=== PATIENT | female | born 2000 | race African-American/Black ===

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

== ENCOUNTER 2019-01-07 07:20 | Inpatient (IN) | payer OTHER ==
[2019-01-07] MEDS: DEXTROSE 5%-LACTATED RINGERS 1,000 ML IV SCH ×2 (08:30→15:28)
[2019-01-07] MEDS ORDERED: BUTORPHANOL TARTRATE 1 MG/ML VIAL IVPB ONE (08:44)
[2019-01-07] MEDS ORDERED: PROMETHAZINE HCL 25 MG/1 ML VIAL IVPUSH ONE (08:44)
--- NOTE | 2019-01-07 08:44 | HP ---
Past Medical History - Primary Care Physician PCP:: Linda Baum - Admission Chief Complaint: Spontaneous rupture of membanes History Source: Patient Limitations to Obtaining History: No Limitations - Past Medical History ...: 2 ...Para: 0 ...Induced : 1 ...EDC by Romy: 01/07/19 - Past Surgical History Past Surgical History: Yes: None Hx Myomectomy: No Hx Transabdominal Cerclage: No - Smoking History Smoking history: Never smoked Have you smoked in the past 12 months: No - Alcohol/Substance Use Hx Alcohol Use: No - Social History History of Recent Travel: No Home Medications - Allergies Allergies/Adverse Reactions: Allergies Allergy/AdvReac Type Severity Reaction Status Date / Time No Known Drug Allergies Allergy Verified 01/07/19 08:54 peach Allergy Verified 01/07/19 08:54 peanut Allergy Verified 01/07/19 08:54 - Home Medications Home Medications: Ambulatory Orders Pnv No.95/Ferrous Fum/Folic AC [ Vitamin Tablet] 1 each PO DAILY 30 Days #30 tablet 05/28/18 Ferrous Sulfate [Feosol] 325 mg PO DAILY 01/03/19 Review of Systems - Review of Systems Constitutional: reports: No Symptoms Eyes: reports: No Symptoms HENT: reports: No Symptoms Neck: reports: No Symptoms Cardiovascular: reports: No Symptoms Respiratory: reports: No Symptoms Gastrointestinal: reports: Abdominal Pain Genitourinary: reports: No Symptoms Breasts: reports: No Symptoms Reported Musculoskeletal: reports: No Symptoms Integumentary: reports: No Symptoms Neurological: reports: No Symptoms Endocrine: reports: No Symptoms Hematology/Lymphatic: reports: No Symptoms Psychiatric: reports: No Symptoms Physical Exam - Maternity Vital Signs: Vital Signs Temperature 97.9 F 01/07/19 07:40 Pulse Rate 80 01/07/19 07:40 Respiratory Rate 20 01/07/19 07:40 Blood Pressure 123/68 01/07/19 07:40 O2 Sat by Pulse Oximetry (%) Constitutional: Yes: Well Nourished, No Distress Neck: Yes: WNL Cardiovascular: Yes: WNL Lungs: Clear to auscultation - Abdominal Exam/OB Fundal Height: 40 Number of Fetuses: Single Presentation: Vertex Contractions: Yes Regularity: Regular Heart Rate (range): 130 Category: I Decelerations: None - Vaginal Exam/OB Dilatation (cm): 2 Effacement (%): 90 Amniotic Membrane Status: Ruptured - Physical Exam Musculoskeletal: Yes: WNL Extremities: Yes: WNL Edema: No Integumentary: Yes: WNL ...Motor Strength: WNL Psychiatric: Yes: WNL, Alert, Oriented Hemorrhage Risk Assessment - Risk Factors Risk Score: 1 Risk Level: Medium Risk Problem List - Problems (1) Spontaneous rupture of amniotic membranes Code(s): [id number] - Assessment/Plan IUP @ 40 weeks SROM Plan stadol
[2019-01-07 09:15] VITALS: BMI 29.4
[2019-01-07 09:25] LABS: BASO % 0.2 % (0-2.0); EOS % 4.7 % (0-4.5); HEMATOCRIT 33.6 % (32.4-45.2); HEMOGLOBIN 11.1 GM/dL (10.7-15.3); LYMPH % 10.1 % (8-40); MCH 24.8 pg (25.7-33.7); MCHC 32.9 g/dl (32.0-36.0); MEAN CELL VOLUME 75.5 fl (80-96); MEAN PLT VOLUME 9.3 fl (7.5-11.1); MONO % 7.5 % (3.8-10.2); NEUT % 77.5 % (42.8-82.8); PLATELET COUNT 179 K/MM3 (134-434); RBC 4.46 M/mm3 (3.60-5.2); RDW 17.3 % (11.6-15.6); WHITE BLOOD COUNT 14.5 K/mm3 (4.0-10.0)
[2019-01-07 09:40] LABS: INR 0.99 (0.83-1.09); PROTHROMBIN TIME (PATIENT) 11.7 SEC (9.7-13.0)
[2019-01-07 09:42] LABS: ACTIVATED PTT 30.9 SECONDS (25.2-36.5)
[2019-01-07] MEDS ORDERED: BUTORPHANOL TARTRATE 1 MG/ML VIAL ONE ×2 (09:53)
[2019-01-07] MEDS ORDERED: PROMETHAZINE HCL 25 MG/1 ML VIAL ONE (09:53)
[2019-01-07 09:59] LABS: ANION GAP 8 MMOL/L (8-16); BLOOD UREA NITROGEN 5 mg/dL (7-18); CALCIUM 8.3 mg/dL (8.5-10.1); CHLORIDE 108 mmol/L (98-107); CO2 24 mmol/L (21-32); CREATININE 0.7 mg/dL (0.55-1.3); GLUCOSE,RANDOM 90 mg/dL (74-106); POTASSIUM 3.3 mmol/L (3.5-5.1); SODIUM 139 mmol/L (136-145)
--- NOTE | 2019-01-07 19:48 | PN ---
Ante-Partal Exam - Subjective Subjective: Pt with co of pain & crying variable decel fro 140 to 120's moderate varibility in between Vital Signs: Vital Signs Temperature 99.0 F 01/07/19 19:00 Pulse Rate 77 01/07/19 19:00 Respiratory Rate 20 01/07/19 19:00 Blood Pressure 113/68 01/07/19 19:00 O2 Sat by Pulse Oximetry (%) Bleeding: No Headache: No Visual changes: No Right upper quadrant pain: No - Contractions Contractions: Yes Regularity: Irregular Intensity: Moderate Monitor Mode: External - Exam during Labor Heart Rate: 140 Variability: Moderate Heart Rate Location: [facility] Category: II Monitor Accelerations: Present Monitor Decelerations: Variable Exam: Vaginal Dilatation (cm): 4 Amniotic Membrane Status: Ruptured Presentation: Vertex - Intrapartum Hemorrhage Risk Risk Score: 0 Risk Level: Low Risk - Assessment/Plan Assessment/Plan: IUP @ 40 wk Cat 2 -varibilile decel contraction refusing epidural plan Will discuss options
[2019-01-07] MEDS ORDERED: FENTANYL/BUPIVACAINE/NS/PF - PCEA - 50 ML DISP.SYRIN EP ONE (19:55)
--- NOTE | 2019-01-07 20:03 | PN ---
Progress Note, Labor Vaginal Exam #1 Labor Exam Date: 01/07/19 Labor Exam Time: 19:45 Dilatation: 4 Effacement (%): 80% Amniotic Membrane Status: Ruptured Presentation: Vertex/Position (In pain. BA. Suspeting OP. Occ. decel, early. Good reactivity. Cat. 2. Epidural explained. Pt. understands and requests it.) Station: -2 Remarks: Plan: Epidural now. Observe. Allow labor to continue.
[2019-01-07] MEDS ORDERED: OXYTOCIN 30 UNITS in 0.9% NS 30 UNIT/500 ML INFUS.BAG IVPB ONE (20:56)
[2019-01-07] MEDS ORDERED: NALOXONE HCL 0.4 MG/ML VIAL IVPUSH PRN (21:35)
[2019-01-07] MEDS ORDERED: ELECTROLYTE-148 SOLN 1,000 ML IV SCH (21:45)
[2019-01-07] MEDS ORDERED: FENTANYL/BUPIVACAINE/NS/PF - PCEA - 50 ML DISP.SYRIN EP SCH (21:45)
[2019-01-07] MEDS ORDERED: OXYTOCIN 30 UNITS in 0.9% NS 30 UNIT/500 ML INFUS.BAG IVPB SCH (21:45)
[2019-01-07] MEDS ORDERED: TUBERCULIN PPD 5 TU/0.1ML SYRINGE (IN PATIENT USE ONLY) ID ONE (22:00)
--- NOTE | 2019-01-08 00:25 | PN ---
Progress Note, Labor Vaginal Exam #2 Labor Exam Date: 01/08/19 Heart Rate (range): 0020 Dilatation: 9 Effacement (%): 100 Amniotic Membrane Status: Ruptured Presentation: Vertex/Position Station: -1 Remarks: ROT, head comming down. FH ok, cat.2. Good variability. I/P: Good progress. Pushing discussed. Will allow to labor for another half hour, continue epidural. All explained.
[2019-01-08] MEDS ORDERED: OXYTOCIN 20 UNITS in 0.9% NS 20 UNIT/1,000 ML INFUS.BAG IV ONE (00:31)
[2019-01-08] MEDS ORDERED: FENTANYL/BUPIVACAINE/NS/PF - PCEA - 50 ML DISP.SYRIN EP ONE (00:31)
[2019-01-08] MEDS ORDERED: OXYTOCIN 20 UNITS in 0.9% NS 20 UNIT/1,000 ML INFUS.BAG IV SCH (01:20)
[2019-01-08] MEDS ORDERED: OXYTOCIN 10 UNITS/ML VIAL IM ONE (01:20)
[2019-01-08] MEDS ORDERED: OXYTOCIN 10 UNITS/ML VIAL ONE (01:22)
--- NOTE | 2019-01-08 01:45 | PN ---
Progress Note, Labor Vaginal Exam #3 Labor Exam Date: 01/08/19 Labor Exam Time: 00:45 Station: +1 (Fully dilated. OA. Pushing.)
--- NOTE | 2019-01-08 01:48 | PN ---
Delivery - Delivery Vaginal Delivery: Spontaneous Type of Anesthesia: Local, Epidural Episiotomy/Laceration: Midline EBL (cc): 600 (Episiotomy repaired in layers. Chr 2-0.) Delivery, Single - Feeding Plan Initial Plan: Elected not to breastfeed exclusively throughout hospitalization
[2019-01-08] MEDS ORDERED: WITCH HAZEL 50% (TUCKS) 40 PAD/JAR PAD TP PRN (03:29)
[2019-01-08] MEDS ORDERED: BENZOCAINE 20% 57 GM BOTTLE TP PRN (03:29)
[2019-01-08] MEDS ORDERED: BENZOCAINE 28 GM HEMORRHOIDAL OINTMENT TP PRN (03:29)
[2019-01-08] MEDS ORDERED: METHYLERGONOVINE MALEATE 0.2 MG/1 ML AMP IM PRN (03:29)
[2019-01-08] MEDS ORDERED: IBUPROFEN 600 MG TABLET (FP) PO PRN (03:29)
[2019-01-08] MEDS ORDERED: BISACODYL 10 MG SUPP.RECT RC PRN (03:29)
[2019-01-08] MEDS: ACETAMINOPHEN 325 MG TABLET (FP) PO PRN ×2 (16:15→23:14)
[2019-01-08 17:12] LABS: HBsAG SCREEN Negative (Negative); RUBELLA IgG ANTIBODY 3.43 index (Immune >0.99)
[2019-01-09] MEDS ORDERED: SENNOSIDES/DOCUSATE COMBO (SENNA PLUS) TABLET (UD) PO PRN (03:29)
[2019-01-09 07:39] LABS: BASO % 0.3 % (0-2.0); EOS % 4.6 % (0-4.5); HEMATOCRIT 27.4 % (32.4-45.2); HEMOGLOBIN 8.9 GM/dL (10.7-15.3); LYMPH % 13.7 % (8-40); MCH 24.3 pg (25.7-33.7); MCHC 32.6 g/dl (32.0-36.0); MEAN CELL VOLUME 74.6 fl (80-96); MEAN PLT VOLUME 9.6 fl (7.5-11.1); MONO % 6.3 % (3.8-10.2); NEUT % 75.1 % (42.8-82.8); PLATELET COUNT 189 K/MM3 (134-434); RBC 3.68 M/mm3 (3.60-5.2); WHITE BLOOD COUNT 14.4 K/mm3 (4.0-10.0)
--- NOTE | 2019-01-09 10:25 | PN ---
Post Progress Note - Subjective Subjective: 18 yo Para 1 status post vaginal delivery, seen and evaluated. Doing well. Post Day: 1 Type of Delivery: Vital Signs: Vital Signs Temperature 98.4 F 01/08/19 22:35 Pulse Rate 97 H 01/08/19 22:35 Respiratory Rate 20 01/08/19 22:35 Blood Pressure 114/62 01/08/19 22:35 O2 Sat by Pulse Oximetry (%) 100 01/08/19 02:50 Breast Exam: Yes: Soft Uterus: Yes: Fundus Firm Abdomen/GI: Yes: Abdomen soft, Tolerating PO Lochia: Yes: Rubra Lochia, amount: Moderate Activity: Ambulating - Labs Labs: CBC WBC 14.4 K/mm3 (4.0-10.0) H 01/09/19 06:55 RBC 3.68 M/mm3 (3.60-5.2) 01/09/19 06:55 Hgb 8.9 GM/dL (10.7-15.3) L 01/09/19 06:55 Hct 27.4 % (32.4-45.2) L D 01/09/19 06:55 MCV 74.6 fl (80-96) L 01/09/19 06:55 MCH 24.3 pg (25.7-33.7) L 01/09/19 06:55 MCHC 32.6 g/dl (32.0-36.0) 01/09/19 06:55 RDW 17.0 % (11.6-15.6) H 01/09/19 06:55 Plt Count 189 K/MM3 (134-434) 01/09/19 06:55 MPV 9.6 fl (7.5-11.1) 01/09/19 06:55 Absolute Neuts (auto) 10.8 K/mm3 (1.5-8.0) H 01/09/19 06:55 Neutrophils % 75.1 % (42.8-82.8) 01/09/19 06:55 Lymphocytes % 13.7 % (8-40) D 01/09/19 06:55 Monocytes % 6.3 % (3.8-10.2) 01/09/19 06:55 Eosinophils % 4.6 % (0-4.5) H 01/09/19 06:55 Basophils % 0.3 % (0-2.0) 01/09/19 06:55 Nucleated RBC % 0 % (0-0) 01/09/19 06:55 Problem List - Problems (1) Status post normal vaginal delivery Code(s): [id number] - Assessment/Plan Status post vaginal delivery Stable Continue routine care
--- NOTE | 2019-01-10 01:28 | DS ---
Physical Exam-COVER OPERATOR Vital Signs: Vital Signs Temperature 98.4 F 01/09/19 22:00 Pulse Rate 88 01/09/19 22:00 Respiratory Rate 20 01/09/19 22:00 Blood Pressure 114/61 01/09/19 22:00 O2 Sat by Pulse Oximetry (%) 100 01/08/19 02:50 Constitutional: Yes: Well Nourished, No Distress Cardiovascular: Yes: WNL Respiratory: Yes: WNL Gastrointestinal: Yes: WNL, Normal Bowel Sounds, Soft ....Post : Yes: Uterus firm, Uterus non-tender Breast(s): Yes: WNL Musculoskeletal: Yes: WNL Extremities: Yes: WNL Edema: No Neurological: Yes: WNL, Alert, Oriented Labs: CBC, BMP 01/09/19 06:55 01/07/19 09:10 Delivery - Delivery Vaginal Delivery: Spontaneous Type of Anesthesia: Epidural Episiotomy/Laceration: Midline EBL (cc): 600 Delivery, Single - Stages of Labor Date 1st Stage Initiatied: 01/07/19 Time 1st Stage Initiated: 04:00 Date 2nd Stage Initiated: 01/08/19 Time 2nd Stage Initiated: 00:45 Date of Delivery: 01/08/19 Time of Delivery: 01:20 Time Placenta Delivered: 01:25 - Condition of Label Rewinder/Coding Specialist Home Health Present: No Infant Gender: Male Weight: 7 lb 12 oz Position: OA Total Hours ROM (Hrs/Mins): 21Hrs/55Mins - 1 Minute Total Score: 9 5 Minutes Total Score: 9 - Feeding Plan Initial Plan: Elected not to breastfeed exclusively throughout hospitalization Discharge Summary Reason For Visit: LABOR Current Active Problems Spontaneous rupture of amniotic membranes (Acute) Status post normal vaginal delivery (Acute) Procedures: Principal: Normal vaginal delivery Hospital Course: unremarkable Condition: Good - Instructions Disposition: HOME - Home Medications Comprehensive Discharge Medication List: Ambulatory Orders Pnv No.95/Ferrous Fum/Folic AC [ Vitamin Tablet] 1 each PO DAILY 30 Days #30 tablet 05/28/18 Ferrous Sulfate [Feosol] 325 mg PO DAILY 01/03/19 Ibuprofen [Motrin -] 600 mg PO TID #21 tablet 01/08/19
[2019-01-10 08:38] VITALS: BP 122/50; PULSE 69; TEMP 97.8
== END 2019-01-10 13:20 | disposition home or self-care (01) | DRG 560 ==
LOC: JDEL 07:20 → JLDR 08:30 → J3W 01-08 04:10
PROVIDERS: ADMIT Obstetrics & Gynecology; ATTEND Obstetrics & Gynecology
PROC: 0W8NXZZ Division of Female Perineum, External Approach (ICD-10-PCS; principal; 2019-01-08)
PROC: 10E0XZZ Delivery of Products of Conception, External Approach (ICD-10-PCS; 2019-01-08)
DX: O48.0 Post-term pregnancy (principal); Z3A.40 40 weeks gestation of pregnancy; Z37.0 Single live birth
CPT/HCPCS: 36415; 59025; 59409; 80048; 85025; 85610; 85730; 86593; 86762; 86850; 86900; 86901; 87340

== ENCOUNTER 2021-06-12 09:38 | Emergency (ER) | payer OTHER ==
[2021-06-12 10:03] VITALS: BMI 21.4
[2021-06-12] MEDS ORDERED: ACETAMINOPHEN 325 MG TABLET (FP) PO ONE (10:11)
[2021-06-12] MEDS ORDERED: SODIUM CHLORIDE 1,000 ML IV STA (10:12)
[2021-06-12 10:34] LABS: BASO % 0.1 % (0-2.0); EOS % 0.2 % (0-4.5); HEMATOCRIT 37.1 % (32.4-45.2); HEMOGLOBIN 12.4 GM/dL (10.7-15.3); LYMPH % 4.2 % (8-40); MCH 26.7 pg (25.7-33.7); MCHC 33.4 g/dl (32.0-36.0); MEAN PLT VOLUME 9.1 fl (7.5-11.1); MONO % 6.4 % (3.8-10.2); NEUT % 89.1 % (42.8-82.8); PLATELET COUNT 242 10^3/uL (134-434); RBC 4.65 M/mm3 (3.60-5.2); RDW 13.8 % (11.6-15.6); WHITE BLOOD COUNT 18.4 K/mm3 (4.0-10.0)
[2021-06-12 10:38] LABS: EPI CELLS >36 /uL (0-25.1); HYALINE CASTS 6 /uL (0-3.1); PH,URINE 5.5 (5.0-8.0); URINE APPEARANCE TURBID; URINE BACTERIA 5012 /uL (0-1359); URINE BILIRUBIN NEGATIVE (NEGATIVE); URINE COLOR YELLOW; URINE GLUCOSE (UA) NEGATIVE (NEGATIVE); URINE KETONE 4+ (NEGATIVE); URINE LEUK ESTERASE 3+ (NEGATIVE); URINE NITRITE POSITIVE (NEGATIVE); URINE PROTEIN 2+ (NEGATIVE); URINE RBC 86 /uL (0-23.9); URINE WBC 5991 /uL (0-25.8)
[2021-06-12] MEDS ORDERED: CEFTRIAXONE 2 GM-D5W BAG 2 GM/50 ML BAG IVPB ONE (10:55)
[2021-06-12 10:56] LABS: CALCIUM 8.7 mg/dL (8.5-10.1)
[2021-06-12 10:57] LABS: ALBUMIN 3.9 g/dl (3.4-5.0); BLOOD UREA NITROGEN 9.8 mg/dL (7-18)
[2021-06-12] MEDS ORDERED: CEFTRIAXONE 1 GM in DEXTROSE 5%-WATER - 100 ML IVPB ONE (10:57)
[2021-06-12 11:00] LABS: CREATININE 0.9 mg/dL (0.55-1.3)
[2021-06-12 11:01] LABS: TOT PROT 7.5 g/dl (6.4-8.2)
[2021-06-12] MEDS ORDERED: ACETAMINOPHEN 325 MG TABLET (FP) ONE (11:02)
[2021-06-12] MEDS ORDERED: CEFTRIAXONE 1 GM/50 ML BAG ONE (11:03)
[2021-06-12 12:58] VITALS: BP 118/85; PULSE 94; TEMP 99.8
== END 2021-06-12 13:38 | disposition home or self-care (01) ==
LOC: JER 09:38
PROC: 3E03329 Introduction of Other Anti-infective into Peripheral Vein, Percutaneous Approach (ICD-10-PCS; principal; 2021-06-12)
PROC: 3E0337Z Introduction of Electrolytic and Water Balance Substance into Peripheral Vein, Percutaneous Approach (ICD-10-PCS; 2021-06-12)
DX: N10 Acute pyelonephritis (principal)
CPT/HCPCS: 36415; 76775-TC; 76830-TC; 80053; 81003; 84703; 85025; 87086; 87186; 99285-25; C9803; U0003; U0005

== ENCOUNTER 2023-03-25 14:23 | Emergency (ER) | payer OTHER ==
[2023-03-25 14:36] VITALS: RESP 18; BMI 23.2
[2023-03-25] MEDS ORDERED: ACETAMINOPHEN 1000 MG/100 ML BAG IVPB ONE (15:27)
[2023-03-25] MEDS ORDERED: SODIUM CHLORIDE 0.9% 500 ML INFUS.BAG IV ONE (15:29)
[2023-03-25] MEDS ORDERED: ACETAMINOPHEN INJECTION 100 ML IVPB ONE (15:55)
[2023-03-25 16:32] LABS: HEMATOCRIT 33.9 % (32.4-45.2); HEMOGLOBIN 11.3 GM/dL (10.7-15.3); MCH 26.3 pg (25.7-33.7); MCHC 33.2 g/dl (32.0-36.0); MEAN CELL VOLUME 79.1 fl (80-96); MEAN PLT VOLUME 9.7 fl (7.5-11.1); PLATELET COUNT 250 10^3/uL (134-434); RBC 4.29 M/mm3 (3.60-5.2); RDW 14.4 % (11.6-15.6); WHITE BLOOD COUNT 11.4 K/mm3 (4.0-10.0)
[2023-03-25 16:40] LABS: EPI CELLS 8 /uL (0-25.1); HYALINE CASTS 1 /uL (0-3.1); URINE APPEARANCE CLOUDY; URINE BACTERIA 3735 /uL (0-1359); URINE BILIRUBIN NEGATIVE (NEGATIVE); URINE COLOR YELLOW; URINE GLUCOSE (UA) NEGATIVE (NEGATIVE); URINE KETONE 1+ (NEGATIVE); URINE LEUK ESTERASE 3+ (NEGATIVE); URINE NITRITE POSITIVE (NEGATIVE); URINE PROTEIN 2+ (NEGATIVE); URINE RBC 79 /uL (0-23.9); URINE WBC 2879 /uL (0-25.8)
[2023-03-25 16:49] LABS: POTASSIUM 3.5 mmol/L (3.5-5.1)
[2023-03-25 16:51] LABS: CALCIUM 8.9 mg/dL (8.5-10.1)
[2023-03-25 16:52] LABS: ALBUMIN 3.5 g/dl (3.4-5.0); BLOOD UREA NITROGEN 6.8 mg/dL (7-18); MAGNESIUM 2.3 mg/dL (1.8-2.4)
[2023-03-25 16:55] LABS: CREATININE 0.8 mg/dL (0.55-1.3)
[2023-03-25 16:56] LABS: BILIRUBIN,TOTAL 0.5 mg/dL (0.2-1); TOT PROT 7.1 g/dl (6.4-8.2)
[2023-03-25 17:29] VITALS: BP 100/60; PULSE 92; TEMP 99.5
[2023-03-25 17:29] LABS: ANISOCYTOSIS 0; MACROCYTOSIS 0; PLATELET ESTIMATE NORMAL
[2023-03-25] MEDS ORDERED: CEFTRIAXONE 1,000 MG in DEXTROSE 5%-WATER - 50 ML IVPB ONE (18:50)
[2023-03-25] MEDS ORDERED: CEFTRIAXONE 1 GM/50 ML BAG ONE (19:07)
== END 2023-03-25 19:52 | disposition home or self-care (01) ==
LOC: JER 14:23
PROC: 3E03329 Introduction of Other Anti-infective into Peripheral Vein, Percutaneous Approach (ICD-10-PCS; principal; 2023-03-25)
PROC: 3E033NZ Introduction of Analgesics, Hypnotics, Sedatives into Peripheral Vein, Percutaneous Approach (ICD-10-PCS; 2023-03-25)
DX: M54.9 Dorsalgia, unspecified (principal); R50.9 Fever, unspecified; R19.7 Diarrhea, unspecified; N12 Tubulo-interstitial nephritis, not specified as acute or chronic; R10.9 Unspecified abdominal pain; R63.0 Anorexia; Z20.822 Contact with and (suspected) exposure to COVID-19
CPT/HCPCS: 0241U-QW; 36415; 71046-TC-FY; 76775-TC; 80053; 81003; 83735; 84703; 85025; 87086; 87186; 99285-25